=== PATIENT | female | born 1945 | race African-American/Black ===

== ENCOUNTER 2017-04-16 18:15 | Observation (INO) | payer MEDICARE, OTHER ==
[2017-04-16 18:53] VITALS: BMI 29.1
[2017-04-16] MEDS ORDERED: Acetaminophen 325 MG TAB PO PRN (21:34)
[2017-04-16] MEDS ORDERED: Zolpidem Tartrate 5 MG TAB PO PRN (21:34)
[2017-04-16] MEDS ORDERED: Mag-Al 1200 mg/1200 mg/30 ML UDCUP PO PRN (21:34)
[2017-04-16] MEDS ORDERED: Guaifenesin DM 100-10/5 ML UDCUP PO PRN (21:34)
[2017-04-16] MEDS ORDERED: Loperamide HCl 2 MG CAP PO PRN (21:34)
[2017-04-16] MEDS ORDERED: Milk Of Magnesia 30 ML UDCUP PO PRN (21:34)
[2017-04-16] MEDS ORDERED: Senokot 8.6 MG TAB PO PRN (21:34)
[2017-04-16] MEDS ORDERED: Loratadine 10 MG TAB PO PRN (21:36)
[2017-04-16] MEDS ORDERED: Eucerin (Mineral Oil/Petrolatum,White) 30 gm Jar TOP PRN (21:36)
[2017-04-16] MEDS ORDERED: Chloraseptic Spray 180 ml Bottle PO PRN (21:36)
[2017-04-16] MEDS ORDERED: hydrALAZINE 20 MG/ML VIAL SLOW IVP PRN (21:36)
[2017-04-16] MEDS ORDERED: Sodium Chloride 0.65% Nasal 44 ML BOT EA NARE PRN (21:36)
[2017-04-16] MEDS ORDERED: Artificial Tears 18 DROP/0.9 ML EA EYE PRN (21:36)
[2017-04-16] MEDS ORDERED: Ibuprofen 600 MG TAB PO PRN (21:36)
[2017-04-16] MEDS ORDERED: cefTRIAXone\\ROCEPHIN 1 GM in Sodium Chloride 0.9% 100 ML IVPB SCH (21:45)
[2017-04-16] MEDS: HYDROcodone/Acetaminophen 10/325 mg Tablet PO PRN (22:28)
--- NOTE | 2017-04-16 22:46 | HP ---
PRIMARY CARE PHYSICIAN: City call admission. REASON FOR ADMISSION: Direct admission from [facility], [place]. HISTORY OF PRESENT ILLNESS: A 72-year-old female, who is sick since Friday night. Since then, she has on and off fever, chills, cough, runny nose, sore throat, body ache. She was trying some over-t he-counter medication without any significant improvement. She started having high-grade fever since 2 days and this patient was having associated throbbing headache. She denies any neck pain. She de nies any neck stiffness. Whenever she was getting fever, at that time she was getting headache and b stephon ache. Patient also started having cough productive of yellowish sputum for the last couple of da ys. She denies any pleuritic chest pain. With these symptoms, she went to physician's [facility] at [facility] in [place]. Over there, she was febrile with temperature 102.6. She was saturating normal on the room ai r. Otherwise, she was hemodynamically stable in the emergency room. She had chest x-ray, which show ed right middle lobe infiltration or influenza screen A positive. The patient was given Rocephin 1 g tra IM and subsequently, she was transferred to our hospital for admission. The patient had a CBC and CMP over there, but unfortunately we are not able to see those reports here in our hospital. REVIEW OF SYSTEMS: The following complete review of systems was negative, unless otherwise mentioned in the HPI or below: Constitutional: Weight loss or gain, ability to conduct usual activities. Sk in: Rash, itching. Eyes: Double vision, pain. ENT/Mouth: Nose bleeding, neck stiffness, pain, te nderness. Cardiovascular: Palpitations, dyspnea on exertion, orthopnea. Respiratory: Shortness of breath, wheezing, cough, hemoptysis, fever or night sweats. Gastrointestinal: Poor appetite, abdom inal pain, heartburn, nausea, vomiting, constipation, or diarrhea. Genitourinary: Urgency, frequenc y, dysuria, nocturia. Musculoskeletal: Pain, swelling. Neurologic/Psychiatric: Anxiety, depressio n. Allergy/Immunologic: Skin rash, bleeding tendency. Please see my HPI for pertinent positives an d negatives. All other review of systems reviewed and negative except as mentioned in the HPI. PAST MEDICAL HISTORY: Hypertension, dyslipidemia, history of TIA, gastroesophageal reflux disease. PAST PSYCHIATRIC HISTORY: Anxiety and depression. PAST SURGICAL HISTORY: Hysterectomy, right knee replacement, gastric bypass, cyst removed from her b reast, carpal tunnel repair bilaterally, elbow surgery. CURRENT HOME MEDICATIONS: Aspirin 325 mg p.o. daily, calcium with vitamin D 1 tablet twice daily, ce tirizine 10 mg p.o. daily, ferrous sulfate 325 mg p.o. twice daily, Prozac 60 mg p.o. daily, Flonase nasal spray b.i.d., [place] 10 one tablet q.6 hourly p.r.n., ibuprofen 600 mg p.r.n., losartan 12.5 mg p.o. daily, metoprolol tartrate 50 mg twice daily, omeprazole 20 mg p.o. daily, Seroquel 200 mg p.o. at bedtime, Zocor 20 mg p.o. at bedtime, trazodone 100 mg p.o. at bedtime. ALLERGIES: PENICILLIN, LISINOPRIL, MORPHINE, LATEX, ADHESIVE TAPE. FAMILY HISTORY: Father has history of diabetes. No strong family history of coronary artery disease , stroke, or cancer. EMERGENCY ROOM COURSE: Patient was given Rocephin 1 gram IM at the emergency room. SOCIAL HISTORY: Patient denies any tobacco, alcohol, or illicit drug abuse. She lives at home with the family. PHYSICAL EXAMINATION: VITAL SIGNS: Currently, temperature 100.2, pulse 81, respiratory rate 18, saturation 96% on room air , blood pressure 150/70. Weight 154 pounds. GENERAL: Patient is currently alert, awake, in no obvious acute distress. HEENT: Head: Normocephalic, atraumatic. Eyes: Pupils round, reactive to light. No conjunctivitis . ENT: Oropharynx within normal limits, no pharyngeal erythema, no exudate. No lymph node. Moist muc ous membranes. No oral lesions. NECK: Supple, no meningeal signs of irritation. No JVD, no thyromegaly, no carotid bruits. LUNGS: Grossly clear to auscultation without any gross rales or rhonchi. CARDIAC: S1, S2 regular without any significant murmur. ABDOMEN: Soft and benign without any tenderness. No suprapubic tenderness. No organomegaly, no mas s. BACK: Unremarkable, no CVA tenderness. EXTREMITIES: Upper extremity, passive movement of all joints are normal. Lower extremities, no sharif a. Good peripheral pulsation. SKIN: No skin rash. HEMATOLOGICAL SYSTEM: No lymphadenopathy. NEUROLOGIC: Nonfocal examination. SIGNIFICANT LABS: Chest x-ray reported as right middle lobe infiltration. Blood culture was obtaine d at the emergency room. CBC reported as within normal limits. CMP reported as within normal limits . Influenza A positive. Urinalysis, ketones, and trace of blood present and protein present. ASSESSMENT AND PLAN: 1. Influenza A. The patient's symptomatology is consistent with the flu-like illness and her influe nza A is positive. We will start Tamiflu 75 mg twice daily and we will provide symptomatic treatment for cough, fever, and runny nose. 2. Right middle lobe community-acquired pneumonia. Patient has flu-like illness and she has almost 6 days history of upper respiratory symptoms. Patient will be given Rocephin 1 gram intravenous q.24 hours and Levaquin 750 mg intravenous daily. Upon discharge, we will prescribe p.o. Levaquin therap y for 7 days. The patient will need repeat chest x-ray upon followup visit with primary care crystali richard. 3. Hypertension. We will continue losartan 12.5 mg p.o. daily, metoprolol tartrate 50 mg twice andrey y. 4. Dyslipidemia. Continue Zocor 20 mg p.o. at bedtime. 5. Gastroesophageal reflux disease. Continue Protonix 40 mg p.o. daily. 6. Anxiety and depression. Continue fluoxetine, trazodone, and Seroquel as per home dosage. 7. Allergic rhinitis. We will continue Flonase nasal spray daily, cetirizine/Claritin 10 mg daily. 8. Deep venous thrombosis prophylaxis, not needed because we are expecting discharge in 24 hours. 9. Gastrointestinal prophylaxis, Protonix 40 mg p.o. daily. CODE STATUS: The patient is FULL CODE. Patient does not have any surrogate decision maker. DISPOSITION AND PLAN: Based on clinical course.
[2017-04-17] MEDS: cefTRIAXone\\ROCEPHIN 1 GM, Syringe 0.4 ML in Sterile Water 9.6 ML SLOW IVP SCH ×2 (00:04→22:42)
[2017-04-17 04:42] LABS: ALT (SGPT) 15 U/L (8-55); AST (SGOT) 24 U/L (5-34); Albumin 3.6 g/dL (3.4-4.8); Alkaline Phosphatase 108 U/L (40-150); Anion Gap 13 mmol/L (10-20); BUN (Urea Nitrogen) 13 mg/dL (9.8-20.1); Bilirubin, Total 0.2 mg/dL (0.2-1.2); Calc. Creatinine Clearance 59 mL/min (70-130); Calcium 8.4 mg/dL (7.8-10.44); Carbon Dioxide 24 mmol/L (23-31); Chloride 99 mmol/L (98-107); Estimated GFR-MDRD 71; Globulin 2.9 g/dL (2.4-3.5); Glucose 98 mg/dL (83-110); Potassium 3.3 mmol/L (3.5-5.1); Protein, Total 6.5 g/dL (6.0-8.3); Sodium 133 mmol/L (136-145)
[2017-04-17 04:54] LABS: Band 2 % (5-11); Lymphocytes 20 % (21-51); MDiff Complete? YES; Mean Corpuscular HGB CONC 32.6 g/dL (32.0-36.0); Mean Corpuscular Hemoglobin 31.4 pg (27.0-31.0); Mean Corpuscular Volume 96.4 fl (81.0-99.0); Mean Platelet Volume 7.5 fL (7.4-10.4); Monocytes 15 % (0-10); Neutrophil 63 % (42-75); PLT Morphology Comment Appears Adequate; Platelet Count 206 thou/uL (130-400); Red Blood Cell (RBC) Count 3.81 mill/uL (4.20-5.40); White Blood Cell (WBC) Count 3.1 thou/uL (4.8-10.8)
[2017-04-17] MEDS: HYDROcodone/Acetaminophen 10/325 mg Tablet PO PRN ×2 (06:33→11:11)
[2017-04-17] MEDS: FLUoxetine HCl 20 MG CAP PO SCH (09:03)
[2017-04-17] MEDS: Losartan 25 MG TAB PO SCH (09:03)
[2017-04-17] MEDS: Oseltamivir 75 MG CAP PO SCH ×2 (09:04→21:05)
[2017-04-17] MEDS: Metoprolol Tartrate 50 MG TAB PO SCH ×2 (09:04→21:05)
[2017-04-17] MEDS: Aspirin 325 mg Enteric Coated Tablet PO SCH (09:04)
[2017-04-17] MEDS: Ferrous Sulfate 325 MG TAB PO SCH ×2 (09:05→18:24)
[2017-04-17] MEDS: Calcium Carbonate + Vit D 1 TAB PO SCH (09:05)
[2017-04-17] MEDS: guaiFENesin ER 600 MG TAB PO SCH ×2 (09:05→21:06)
[2017-04-17] MEDS: Benzonatate 100 MG CAP PO PRN ×2 (11:11→18:27)
--- NOTE | 2017-04-17 11:45 | PDOC.PN ---
- Subjective Encounter Start Date: 04/17/17 Encounter Start Time: 09:25 states she is doing better. just dealing with a nagging cough as well as a headache - Objective Resuscitation Status: Resuscitation Status FULL:Full Resuscitation Vital Signs & Weight: Vital Signs (12 hours) Temp Pulse Resp BP BP Pulse Ox 04/17/17 08:00 99.2 F 76 16 04/17/17 07:44 99.2 F 76 16 181/81 H 95 04/17/17 04:22 99.7 F H 69 16 139/67 95 Weight Weight 154 lb 1.6 oz I&O: 04/16/17 04/17/17 04/18/17 06:59 06:59 06:59 Intake Total 480 Balance 480 Result Diagrams: 04/17/17 04:06 04/17/17 04:06 Phys Exam - Physical Examination Constitutional: NAD HEENT: PERRLA, moist MMs, sclera anicteric Neck: no JVD, supple, full ROM rhonchi when coughig B/L Cardiovascular: RRR, no significant murmur, no rub Gastrointestinal: soft, non-tender, no distention Musculoskeletal: no edema, pulses present Neurological: non-focal, normal sensation, moves all 4 limbs Psychiatric: normal affect, A&O x 3 Skin: cap refill <2 seconds Dx/Plan (1) Influenza Code(s): J11.1 - FLU DUE TO UNIDENTIFIED INFLUENZA VIRUS W OTH RESP MANIFEST Status: Acute (2) Community acquired pneumonia Code(s): J18.9 - PNEUMONIA, UNSPECIFIED ORGANISM Status: Acute (3) Dyslipidemia Code(s): E78.5 - HYPERLIPIDEMIA, UNSPECIFIED Status: Chronic (4) HTN (hypertension) Code(s): I10 - ESSENTIAL (PRIMARY) HYPERTENSION Status: Chronic Qualifiers: - Plan cont current plan of care, continue antibiotics, respiratory therapy * . conitnue abx with tamiflu tylenol prn for fevers likely descalate abx tmrw if better
[2017-04-17] MEDS: Fluticasone Propionate Nasal Spray 16 gm Bottle NASAL SCH (13:53)
[2017-04-17] MEDS: REFRESH PLUS (Carboxymethylcellulose 0.5%) Opth Drops EA EYE SCH ×4 (13:56→21:07)
[2017-04-17] MEDS ORDERED: Atorvastatin Calcium 10 MG TAB PO SCH (21:00)
[2017-04-17] MEDS ORDERED: traZODone HCl 50 MG TAB PO SCH (21:00)
[2017-04-18 04:39] LABS: Anion Gap 14 mmol/L (10-20); BUN (Urea Nitrogen) 12 mg/dL (9.8-20.1); Calc. Creatinine Clearance 58 mL/min (70-130); Calcium 8.6 mg/dL (7.8-10.44); Carbon Dioxide 22 mmol/L (23-31); Chloride 104 mmol/L (98-107); Estimated GFR-MDRD 69; Glucose 97 mg/dL (83-110); Potassium 3.5 mmol/L (3.5-5.1); Sodium 136 mmol/L (136-145)
[2017-04-18 08:09] VITALS: BP 148/76; TEMP 99.1
[2017-04-18] MEDS: Oseltamivir 75 MG CAP PO SCH (08:58)
[2017-04-18] MEDS: FLUoxetine HCl 20 MG CAP PO SCH (08:59)
[2017-04-18] MEDS: Calcium Carbonate + Vit D 1 TAB PO SCH (09:00)
[2017-04-18] MEDS: Ferrous Sulfate 325 MG TAB PO SCH (09:00)
[2017-04-18] MEDS ORDERED: Amlodipine 5 MG TAB PO SCH (09:00)
[2017-04-18] MEDS: guaiFENesin ER 600 MG TAB PO SCH (09:00)
[2017-04-18] MEDS: Losartan 25 MG TAB PO SCH (09:00)
[2017-04-18] MEDS: Aspirin 325 mg Enteric Coated Tablet PO SCH (09:00)
[2017-04-18] MEDS: Metoprolol Tartrate 50 MG TAB PO SCH (09:01)
[2017-04-18] MEDS: Fluticasone Propionate Nasal Spray 16 gm Bottle NASAL SCH (09:46)
[2017-04-18] MEDS: REFRESH PLUS (Carboxymethylcellulose 0.5%) Opth Drops EA EYE SCH (09:46)
--- NOTE | 2017-04-18 22:15 | DIS ---
DISCHARGE DIAGNOSES: 1. Positive for influenza. 2. Community-acquired pneumonia. 3. Hyperlipidemia. 4. Hypertension. HOSPITAL COURSE: While patient was in hospital, the patient was started on IV antibiotics as well as Tamiflu. The patient was monitored closely for any deterioration in clinical status, which did not occur. The patient improved with the management that was in place. The patient was found to be febr ile initially, but has been afebrile for over 24 hours. The patient stated that she was not complain ing of any more shortness of breath, fevers or chills. She was able to move around about the room wi thout any significant limitations. Because the patient was doing quite well, the patient will be on Tamiflu as well as antibiotics and supportive management, I was comfortable discharging the patient h ome, to continue taking Tamiflu as well as antibiotics to complete both courses. I spoke with the mathew samuel about this for which she agreed and was happy about going home. I educated her about the impor tance to follow up with her primary care physician in 1 week for which the patient states that she wi ll. After all this was done, the patient was safely discharged home in stable condition. DISCHARGE CONDITION: Much improved than when she first came in. DISCHARGE ACTIVITY: As tolerated. DISCHARGE DISPOSITION: To home. DISCHARGE MEDICATIONS: Please see discharge medication list. FOLLOWUP APPOINTMENTS: The patient will follow up primary care physician in 1 week. DISCHARGE PLAN: Discharge planning was greater than 30 minutes. DISCHARGE DIET: Heart healthy diet.
== END 2017-04-18 12:19 | disposition home or self-care (01) ==
LOC: 2SW 18:15
PROVIDERS: ADMIT Internal Medicine; ATTEND Internal Medicine
DX: J10.1 Influenza due to other identified influenza virus with other respiratory manifestations (principal); J18.9 Pneumonia, unspecified organism; E78.5 Hyperlipidemia, unspecified; I10 Essential (primary) hypertension; K21.9 Gastro-esophageal reflux disease without esophagitis; J30.9 Allergic rhinitis, unspecified; F41.9 Anxiety disorder, unspecified; F32.9 Major depressive disorder, single episode, unspecified; Z88.0 Allergy status to penicillin; Z88.5 Allergy status to narcotic agent; Z88.8 Allergy status to other drugs, medicaments and biological substances; Z91.040 Latex allergy status; Z91.048 Other nonmedicinal substance allergy status; Z79.82 Long term (current) use of aspirin; Z79.899 Other long term (current) drug therapy; Z98.84 Bariatric surgery status; Z90.710 Acquired absence of both cervix and uterus; Z96.651 Presence of right artificial knee joint; Z98.890 Other specified postprocedural states; Z86.73 Personal history of transient ischemic attack (TIA), and cerebral infarction without residual deficits; Z83.3 Family history of diabetes mellitus
CPT/HCPCS: 80048; 80053; 85025; 96374; 96376; G0378; 36415; A4216; J0696; J1956

== ENCOUNTER 2017-08-06 08:20 | Outpatient (CLI) | payer MEDICARE | END 2017-08-06 08:21 | disposition home or self-care (01) | LOC: BICMAMMO 08:20 | PROVIDERS: ATTEND Internal Medicine | DX: Z12.31 Encounter for screening mammogram for malignant neoplasm of breast (principal) | CPT/HCPCS: 77063; 77067 ==

== ENCOUNTER 2018-01-22 16:19 | Emergency (ER) | payer MEDICARE, OTHER ==
--- NOTE | 2018-01-22 16:56 | RAD ---
FOUR VIEW RIGHT KNEE: 01/22/18 INDICATION: Pain. Chronic. FINDINGS: Right knee prosthesis. No acute hardware complication. No evidence of fracture. IMPRESSION: Postoperative right knee without acute osseous abnormality. POS: MANUEL
== END 2018-01-22 21:35 | disposition left against medical advice (07) ==
LOC: ERS 16:19
DX: Z53.21 Procedure and treatment not carried out due to patient leaving prior to being seen by health care provider (principal)